=== PATIENT | female | born 1985 | race Caucasian/White ===

== ENCOUNTER → 2018-04-19 | Outpatient (CLI) | payer OTHER | LOC: FIMAGING 08:08 | PROVIDERS: ATTEND Advanced Practice Midwife | DX: O09.522 Supervision of elderly multigravida, second trimester (principal); Z3A.22 22 weeks gestation of pregnancy ==

== ENCOUNTER 2018-08-07 02:11 | Inpatient (IN) | payer OTHER ==
[2018-08-07] MEDS ORDERED: EPSOM SALT 454 GM TP PRN (03:47)
[2018-08-07] MEDS ORDERED: OLIVE OIL 118 ML BTL MISC PRN (03:47)
[2018-08-07] MEDS ORDERED: LIDOCAINE 1% 300 MG/30 ML SDV SC PRN (03:47)
[2018-08-07] MEDS ORDERED: IBUPROFEN 600 MG TAB PO PRN (03:47)
[2018-08-07] MEDS ORDERED: SIMETHICONE 80 MG TAB CHEW PO PRN (03:51)
[2018-08-07] MEDS ORDERED: HYDROCODONE/APAP 5/325 TAB PO PRN (03:51)
[2018-08-07] MEDS ORDERED: HYDROCORTISONE 0.5% CREAM TP PRN (03:51)
--- NOTE | 2018-08-07 04:03 | PDGENHP ---
History and Physical History and Physical: CARE: [facility] HPI: Patient is a 33 yo G 1 P 0 at 38.3 weeks ega who presents to L&D in active labor. She had SROM clear fluid at 0030. Starting tasha at 0045 and the became very intense quickly. She was completely dilated when she arrived. She delivered shortly after arrival - see delivery note. EDC: 08/18/18 which is based on LMP: 11/11/17 which is known and consistent with Ultrasound at 7 weeks. Her is complicated by: - AMA - Anemia - Diet controlled GDM Review of Systems: Constitutional: Denies any fever, chills, or fatigue HEENT: denies any visual changes, difficulty swallowing, hearing loss Cardiovascular: Denies any chest pain, palpitations, leg swelling Respiratory: denies any cough, wheezing, or shortness of breathe GI: Denies any nausea, vomiting, diarrhea, constipation : denies any dysuria, urgency, frequency, vaginal bleeding Musculoskeletal: denies any muscle or bone pain Skin: denies any rashes Neuro: denies any headache, seizures, lightheadedness, dizziness, or loss of consciousness Psychiatric: denies any depression, anxiety, or SI/HI thoughts HISTORY: Previous OB history: none Past medical history: PCOS Past surgical history: hernia repair Medications: PNV Allergies: amoxicillin, pcns LABS: Rh: A pos ABS: Neg Rubella: Immune HbsAg: NR HIV: NR VDRL: NR 1hr: 149 GC: Neg Chlamydia: Neg GBS: neg PHYSICAL EXAM: Constitutional: WN, A&Ox3 HEENT: normocephalic atraumatic, supple Heart: RRR, no murmur Chest: CTA-B Abdomen: Soft, nontender, gravid Extremities: tr edema, negative abdi's sign Neuro: grossly normal Psych: normal affect assessment: Reassuring FHTs, baseline 130s +accels, variable decels with pushing, moderate variability Contractions: toco q 2-3 Assessment: 1) 33 yo G 1 P 1 2) precipitous delivery shortly after arrival to hospital 3) GBS neg 4) Diet controlled GDM Plan: 1) Admit to L&D 2) See delivery note 3) routine pp care
--- NOTE | 2018-08-07 04:06 | OBDEL ---
Info Type: Vaginal Presentation at Delivery: Vertex L&D Analgesia/Anesthesia Type: None GBS+: No Indications for Delivery: Spontaneous Labor Vaginal Delivery - Delivery Provider Delivery Physician/CNM: Adelina Lord - Labor and Delivery Onset of Contractions Date: 08/07/18 Onset of Contractions Time: 00:45 Onset of Contractions Type: Spontaneous Rupture of Membranes Date: 08/07/18 Rupture of Membranes Time: 00:30 Rupture of Membranes Type: Spontaneous Amniotic Fluid Color: Clear Dilation Complete Date: 08/07/18 Dilation Complete Time: 02:15 Placenta Delivery Date: 08/07/18 Placenta Delivery Time: 03:11 Total Hours of Labor: 2 Laceration: 2nd Degree, Other (Specify) (left sulcus) Repair: 3-0, Vicryl Vaginal Sponge Count Correct: Yes Vaginal Needle Count Correct: Yes Vaginal Sweep Performed: Yes EBL: 200 Delivery Events: Other (Specify) (precipitous labor) Data JOZEF: 08/18/18 Gestational Age: 38 week(s) and 3 day(s) Colon Delivery Date: 08/07/18 Delivery Time: 03:04 Sex of Infant: Female Score (1 Min): 8 Score (5 Min): 9 ICD10 Worksheet Patient Problems: Problems Problem Status Onset Vaginal delivery Acute - ICD10 Problem Qualifiers (1) Vaginal delivery
[2018-08-07] MEDS: ACETAMINOPHEN 325 MG TAB PO PRN ×3 (05:23→18:17)
[2018-08-07] MEDS: DOCUSATE SODIUM 100 MG CAP PO PRN (12:23)
[2018-08-07] MEDS: IBUPROFEN 600 MG TAB PO PRN ×2 (12:23→18:16)
[2018-08-08] MEDS: IBUPROFEN 600 MG TAB PO PRN ×4 (00:52→19:58)
[2018-08-08] MEDS: DOCUSATE SODIUM 100 MG CAP PO PRN ×2 (00:52→07:28)
[2018-08-08] MEDS: ACETAMINOPHEN 325 MG TAB PO PRN ×4 (00:52→19:58)
--- NOTE | 2018-08-08 12:24 | OBPP ---
Progress Note Assessment/Plan: Assessment: [id number] s/p PPD#1 Plan: routine PP care ambulate/void/hydrate support PRN anticipate d/c home tomorrow 08/09/18 12:45 Subjective/ Course: 08/09/18 02:31 Pt doing well, she denies any heavy bleeding or severe pain. She is ambulating and voiding without difficulty. She is working with on BFing. She states she is happy with labor and delivery. Objective: Temp Pulse Resp BP Pulse Ox 36.0 C 83 16 119/77 97 08/08/18 08:00 08/08/18 08:00 08/08/18 08:00 08/08/18 08:00 08/08/18 08:00 Uterine Position/Fundal Height: Umbilicus -1, Midline Uterine Tone: Firm
[2018-08-09] MEDS: IBUPROFEN 600 MG TAB PO PRN ×2 (01:51→09:54)
[2018-08-09] MEDS: ACETAMINOPHEN 325 MG TAB PO PRN ×2 (01:52→09:56)
--- NOTE | 2018-08-09 08:57 | OBGCSDC ---
General Delivery Information - General Info : 1 Para: 1 Abortions: 0 Type: Vaginal L&D Analgesia/Anesthesia Type: None Admission Date: 08/07/18 - Hospital Course : 08/09/18 02:31 Pt doing well, she denies any heavy bleeding or severe pain. She is ambulating and voiding without difficulty. She is working with on [employer]. She states she is happy with labor and delivery. 08/09/18 08:56 Doing well. Breast feeding with minimal assistance. Breast slightly engorged. 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 Voiding without difficulty. Flatus, no BM. Vaginal - Delivery Provider Delivery Physician/CNM: Adelina Lord - Diagnosis Labor: Spontaneous Rupture of Membranes Type: Spontaneous Amniotic Fluid Color: Clear Laceration: 2nd Degree, Other (Specify) (left sulcus) Repair: 3-0, Vicryl Delivery Events: Other (Specify) (precipitous labor) - Delivery EBL: 200 [place] Data JOZEF: 08/18/18 Gestational Age: 38 week(s) and 5 day(s) Colon Delivery Date: 08/07/18 Delivery Time: 03:04 Sex of Infant: Female [place] Weight (gm): 2795 g Score (1 Min): 8 Score (5 Min): 9 Discharge Information - Discharge Information Prescriptions: Ibuprofen [Motrin (*)] 600 mg PO Q6HRS PRN #30 tab PRN Reason: Pain, Mild Able To Take Po Instruction/Follow Up: Two Weeks, Four Weeks, Six Weeks
[2018-08-09] MEDS: DOCUSATE SODIUM 100 MG CAP PO PRN (09:54)
[2018-08-09 10:37] VITALS: BP 131/84
== END 2018-08-09 12:45 | disposition home or self-care (01) | DRG 807 ==
LOC: FLD 02:11 → OBSVTOIN 03:50 → FOB 07:15
PROVIDERS: ADMIT Advanced Practice Midwife; ATTEND Advanced Practice Midwife
PROC: 10E0XZZ Delivery of Products of Conception, External Approach (ICD-10-PCS; principal; 2018-08-07)
PROC: 0KQM0ZZ Repair Perineum Muscle, Open Approach (ICD-10-PCS; principal; 2018-08-07)
DX: O24.410 Gestational diabetes mellitus in pregnancy, diet controlled (principal); Z37.0 Single live birth; Z3A.38 38 weeks gestation of pregnancy; O99.02 Anemia complicating childbirth; D64.9 Anemia, unspecified; O70.1 Second degree perineal laceration during delivery

== ENCOUNTER → 2018-08-13 | Outpatient (CLI) | payer OTHER | LOC: FLACT 10:44 | PROVIDERS: ATTEND Advanced Practice Midwife | DX: Z39.1 Encounter for care and examination of lactating mother (principal) | CPT/HCPCS: G0463 ==